=== PATIENT | female | born 1960 | race African-American/Black ===

== ENCOUNTER 2023-08-26 21:04 | Emergency (ER) | payer BC, OTHER ==
[~2023-08-26] VITALS: Ht 162.6 cm; Wt 73.2 kg
[~2023-08-26 21:04] MED LIST: DICLOFENAC SOD2.5 ML TOP; MOTRIN 200200 MG/TAB PO
[2023-08-26 21:17] VITALS: BP 102/69; TEMP 99.4
[2023-08-26 23:00] VITALS: PULSE 64
== END 2023-08-26 23:00 | disposition home or self-care (01) ==
LOC: COL.ER 21:04
DX: J10.1 Influenza due to other identified influenza virus with other respiratory manifestations (principal)